=== PATIENT | female | born 1965 ===

== ENCOUNTER 2018-03-17 16:12 | Outpatient (REF) | payer MEDICARE, MEDICAID, SELFPAY ==
[2018-03-17 22:05] LABS: BUN 15 mg/dL (7-18); CREATININE 0.96 mg/dL (0.55-1.02); Calcium 9.7 mg/dL (8.5-10.1); Chloride 105 mmol/L (98-107); Glucose 98 mg/dL (70-100); Potassium 4.4 mmol/L (3.5-5.1); Sodium 140 mmol/L (136-145)
== END 2018-03-17 16:32 ==
LOC: NCHCN 16:12
PROVIDERS: PCP Family Medicine; Visit Provider Family Medicine
DX: E83.52 Hypercalcemia (principal); R73.03 Prediabetes; Z01.812 Encounter for preprocedural laboratory examination
CPT/HCPCS: 80048; 83036

== ENCOUNTER 2018-08-10 10:39 | Outpatient (REF) | payer MEDICARE, MEDICAID, SELFPAY ==
[2018-08-10 21:20] LABS: Abs Immature Grans 0.01 k/cumm (0.0-0.09); Absolute Basophil Count 0.03 k/cumm (0.0-0.2); Absolute Eosinophil Count 0.07 k/cumm (0.0-0.7); Absolute Monocyte Count 0.36 k/cumm (0.11-0.7); Absolute Neutrophil Count 2.46 k/cumm (1.2-6.7); Basophils % 0.5; Eosinophils % 1.2; HCT 41.7 % (36.0-46.0); Immature Grans % 0.2; Lymphocytes % 51.4; Mean Corpuscular Hemoglobin 30.9 pg (27.0-33.0); Mean Platelet Volume 10.7 fL (8.0-11.0); Neutrophils % 40.7; Platelet Count 241 x1000/uL (130-400); RBC 4.85 m/cumm (4.00-5.20); RBC Distribution Width 12.9 % (11.7-14.6); White Blood Cell Count 6.03 k/cumm (4.4-10.8)
[2018-08-10 21:26] LABS: Hemoglobin A1C 6.4 % (4.5-6.2)
[2018-08-10 21:40] LABS: VALPROIC ACID 57.4 ug/mL (50-100)
[2018-08-10 21:44] LABS: ALT 43 U/L (12-78); AST 29 U/L (15-37); Albumin 3.5 g/dL (3.4-5.0); Alkaline Phosphatase 141 U/L (46-116); Anion Gap 11.2 mmol/L (3-11); BUN 15 mg/dL (7-18); Bilirubin, Total 0.3 mg/dL (0.2-1.0); CO2 26.8 mmol/L (21.0-32.0); CREATININE 1.16 mg/dL (0.55-1.02); Calcium 9.3 mg/dL (8.5-10.1); Chloride 104 mmol/L (98-107); Cholesterol 202 mg/dL (50-200); Estimated GFR 49.06 (mL/min/1.73m2); Glucose 170 mg/dL (70-100); HDL Cholesterol 33 mg/dL (40-60); LDL CHOLESTEROL 131 mg/dL (<100); Potassium 4.1 mmol/L (3.5-5.1); Sodium 142 mmol/L (136-145); T4 8.8 ug/dL (4.5-12.5); TSH 3.83 uIU/mL (0.358-3.74); Total Protein 6.8 g/dL (6.4-8.2); Triglyceride 307 mg/dL (30-150)
[2018-08-10 22:02] LABS: Vitamin D 25 Total 43.6 ng/ml (30-100)
== END 2018-08-10 10:59 ==
LOC: LBN 10:39
PROVIDERS: PCP Family Medicine; Visit Provider Psychiatry & Neurology Neurology
DX: E55.9 Vitamin D deficiency, unspecified (principal); Z79.899 Other long term (current) drug therapy; Z51.81 Encounter for therapeutic drug level monitoring
CPT/HCPCS: 80053; 80061; 82306; 83721; 80164; 83036; 84436; 84443; 85025

== ENCOUNTER 2019-01-13 13:33 | Outpatient (REF) | payer MEDICARE, MEDICAID, SELFPAY ==
[2019-01-13 22:45] LABS: Hemoglobin A1C 6.5 % (4.5-6.2)
[2019-01-13 22:48] LABS: VALPROIC ACID 51.9 ug/mL (50-100)
== END 2019-01-13 13:53 ==
LOC: NCHCN 13:33
PROVIDERS: PCP Family Medicine; Visit Provider Internal Medicine
DX: R73.03 Prediabetes (principal); R56.9 Unspecified convulsions; Z51.81 Encounter for therapeutic drug level monitoring; Z79.899 Other long term (current) drug therapy
CPT/HCPCS: 80164; 83036

== ENCOUNTER 2019-03-03 11:25 | Outpatient (REF) | payer MEDICARE, MEDICAID, SELFPAY ==
[2019-03-03 21:37] LABS: Abs Immature Grans 0.01 k/cumm (0.0-0.09); Absolute Basophil Count 0.03 k/cumm (0.0-0.2); Absolute Eosinophil Count 0.13 k/cumm (0.0-0.7); Absolute Monocyte Count 0.46 k/cumm (0.11-0.7); Absolute Neutrophil Count 4.31 k/cumm (1.2-6.7); Basophils % 0.3; Eosinophils % 1.5; HCT 42.2 % (36.0-46.0); HGB 14.9 g/dL (12.0-15.5); Immature Grans % 0.1; Lymphocytes % 44.7; Mean Corp. HGB Concentration 35.3 g/dL (32.0-36.0); Mean Corpuscular Hemoglobin 31.1 pg (27.0-33.0); Mean Corpuscular Volume 88.1 fL (80-95); Mean Platelet Volume 10.9 fL (8.0-11.0); Monocytes % 5.1; Neutrophils % 48.3; Platelet Count 237 x1000/uL (130-400); RBC 4.79 m/cumm (4.00-5.20); White Blood Cell Count 8.94 k/cumm (4.4-10.8)
[2019-03-03 21:45] LABS: VALPROIC ACID 36.5 ug/mL (50-100)
[2019-03-03 21:50] LABS: COMMENT (LAB VIEW ONLY) 67.01 mg/dL; Microalb ug/mg Crea 4.2 ug/mg Cr
[2019-03-03 21:56] LABS: Anion Gap 10.5 mmol/L (3-11); BUN 11 mg/dL (7-18); CO2 26.5 mmol/L (21.0-32.0); CREATININE 0.98 mg/dL (0.55-1.02); Calcium 9.9 mg/dL (8.5-10.1); Chloride 103 mmol/L (98-107); Estimated GFR 59.37 (mL/min/1.73m2); Glucose 117 mg/dL (70-100); Potassium 4.4 mmol/L (3.5-5.1); Sodium 140 mmol/L (136-145); TSH (W/Ref FT4) 2.84 uIU/mL (0.36-3.74)
== END 2019-03-03 11:45 ==
LOC: NCHCN 11:25
PROVIDERS: PCP Family Medicine; Visit Provider Internal Medicine
DX: F33.0 Major depressive disorder, recurrent, mild (principal); Z51.81 Encounter for therapeutic drug level monitoring; Z79.899 Other long term (current) drug therapy; E11.65 Type 2 diabetes mellitus with hyperglycemia
CPT/HCPCS: 80048; 80164; 82043; 82570; 84443; 85025